=== PATIENT | female | born 1985 | race Caucasian/White ===

== ENCOUNTER 2025-09-09 13:47 | Emergency (ER) | payer OTHER, SELFPAY ==
[2025-09-09 13:49] VITALS: BP 129/91
--- NOTE | 2025-09-09 15:08 | ED.GENMED ---
History of Present Illness
General
Chief Complaint: Cold/Flu/URI Symptoms
Time Seen by Provider: 09/09/25 14:13
History of Present Illness
History of Present Illness:
See MDM
Phy Exam
Physical Exam
Physical Exam:
See MDM
Course
Orders/Labs/Results
Orders:
Orders
09/09/25 15:06
COVID-19 Antigen Urgent
Source: Nasal Swab
Influenza A+B Rapid Molecular Urgent
[place] Source: Nasal Swab
Specimen Description:
Rapid Strep Group A Urgent
[place] Source: Throat/Pharynx
Specimen Description:
Date Specimen was Collected: 09/09/25
Time Specimen was Collected: 15:05
Vital Signs
Initial and Last Documented VS:
Initial Vital Signs
Temp Pulse Resp BP Pulse Ox
36.8 C 90 16 129/91 100
09/09/25 13:49 09/09/25 13:49 09/09/25 13:49 09/09/25 13:49 09/09/25 13:49
Last Documented Vital Signs
Temp Pulse Resp BP Pulse Ox
36.8 C 90 16 129/91 100
09/09/25 13:49 09/09/25 13:49 09/09/25 13:49 09/09/25 13:49 09/09/25 15:08
MDM/Problems Addressed
Differential Diagnosis Includes:
see MDM
MDM/Problems Addressed:
Note:
CHIEF COMPLAINT(S)
Body aches, chills, skin sensitivity, fever, cough, sore throat, vomiting.
HISTORY OF PRESENT ILLNESS
The patient is a 39-year-old female who presented with symptoms starting at 11:00 PM 09/04. She reports body aches, chills, and skin sensitivity along with sweating and a fever, which reached 99�F at one point. sore throat as well
went to and had testing for strep (neg) and flu (neg). no covid test
The patient has been managing symptoms with acetaminophen but notes return of symptoms as the medication wears off.
She observed that the cough developed later, dry in nature, and mentioned vomiting episodes starting on 2 days ago, persisting intermittently, particularly on last night for around an hour. The vomiting has affected her appetite as well. no vomiting
today, toelrated PO
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
no other household contacts are sick
PHYSICAL EXAM
GENERAL: Alert , in no apparent distress
EYE: pupils equal and reactive
NECK: Supple no significant lymphadenopathy
ENT: Right TM moderately erythematous, mild pharynx erythematous but no tonsillar hypertrophy or exudates
CARDIAC: Regular rate and rhythm, no edema
LUNGS: Clear breath sounds bilaterally, no acute respiratory distress, no wheezes/rales/rhonchi, occ cough
ABDOMEN: Soft, without focal tenderness, no r/g, no cvat, normal bowel sounds
NEUROLOGICAL: Alert and oriented, no focal neuro deficits
SKIN: Warm and dry, skin intact.
MUSCULOSKELETAL: No edema, well perfused.
PSYCH: Normal and appropriate interaction.
- Nursing notes reviewed and vital signs reviewed.
PROBLEM LIST
Acute:
- Viral upper respiratory infection
- Sore throat with possible streptococcal infection
- Vomiting
- Suspected viral etiology for symptoms
PLAN
1. Repeat testing for COVID-19 and influenza due to potential for false negatives.
2. Repeat throat swab for bacterial culture testing.
3. Monitor for symptom progression, with attention to patience until results return and within normal viral infection time frame (5-7 days).
4. Advise continued use of supportive care with acetaminophen for symptom management.
DIFFERENTIAL DIAGNOSIS
The Differential Diagnosis includes, in no particular order and is not limited to:
1. Viral upper respiratory infection
2. Streptococcal pharyngitis
3. Influenza
4. COVID-19
5. Gastroenteritis
6. Pharyngitis
7. Mononucleosis
8. Acute sinusitis
9. Allergic rhinitis
10. Tonsillitis
Patient says that she was seen at urgent care on the second day of illness and tested negative for flu and strep.
39-year-old female in the fifth day of sore throat, cough is mostly dry, some chills without known fever, body aches and her earache
She has continued to have pain when her Tylenol or Motrin wears off. She has not gotten significantly worse but did have some vomiting last night and the night before. She has been able to tolerate this morning. On exam she looks extremely well,
is afebrile, has mild right TM erythema, her throat looks remarkably well without significant redness, exudate, swelling, uvular edema, her voice is normal, there is no tender lymphadenopathy, lungs are clear, and I did not hear a cough. Patient's
abdomen is negative. She was tested for flu COVID and strep again which were all negative. I suspect this is viral. I will give her a prescription for cefdinir for her ear if she continues to have symptoms in the next 2 days. Likely this is viral
*Pulse Oximetry
SaO2: 100
Oxygen Mode of Delivery: Room air
Patient hypoxic: no (100)
*Critical Care Note
Total Time (30-74mins, 75-104mins- exclusive of procedures): Not Applicable
ED Attending Note
-
Portions of this chart may have been created with voice recognition software.� Occasional wrong word or��sound alike� substitutions may have occurred due to the inherent limitations of voice recognition software.
Discharge Plan
Departure
Patient Disposition: Home (Routine Discharge)
Patient with high blood pressure during this ER visit?: No
Condition: Fair
Covid-19: Negative COVID-19
Discharge Problem:
Upper respiratory infection
Instructions: Viral Upper Respiratory Infection, Adult (DC)
Prescriptions:
New
cefdinir 300 mg capsule
300 mg PO BID Qty: 14 0RF
Referrals:
UNKNOWN - PT DOES,NOT KNOW [Family Provider]
Activity Restrictions/Additional Instructions:
YOU LIKELY HAVE A VIRAL INFECTION
TAKE TYLENOL/MOTRIN TO HELP WITH SYMPTOMS
DRINK FLUIDS
STAY HYDRATED
IF YOU ARE STILL HAVING FEVERS/PAIN AFTER 2 MORE DAYS, YOU CAN START THE CEFDINIR TWICE A DAY FOR 7 DAYS
YOU HAD A SUBTLE EAR INFECTOIN BUT AGAIN LIKELY VIRAL
RETRUN FOR ANY CONCERNS, SHAKING CHILLS, SEVERE COUGH, INABILITY TO SWALLOW ETC
Interventions
Interventions:
*Risk Screen - Suicide Last Done: 09/09/25 13:49
*General Assessment Last Done: 09/09/25 14:28
*Neglect/Abuse Screening Last Done: 09/09/25 13:49
*ED- Fall Risk Assessment Last Done: 09/09/25 14:28
*Nursing Disposition Last Done: 09/09/25 15:50
ED- Pulmonary Assessment Last Done: 09/09/25 14:28
Discharge Date and Time
Discharge Date/Time: 09/09/25 15:51
Print Language: [place]
[2025-09-09 15:26] LABS: COVID-19 Antigen Negative (Negative)
== END 2025-09-09 15:51 | disposition home or self-care (01) ==
LOC: EMR 13:47
PROVIDERS: Physician Assistant; EMERGENCY PHYSICIAN Emergency Medicine
DX: J06.9 Acute upper respiratory infection, unspecified (principal); Z11.52 Encounter for screening for COVID-19; J02.9 Acute pharyngitis, unspecified
CPT/HCPCS: 99283; 87070; 87502; 87811; 87880